=== PATIENT | female | born 1985 | race Caucasian/White ===

== ENCOUNTER 2017-12-12 07:18 | Inpatient (IN) ==
[2017-12-12] MEDS ORDERED: ceFAZolin 2,000 MG in PREMIX 1 EACH IV ONE (07:36)
[2017-12-12] MEDS ORDERED: CITRIC ACID/SODIUM CITRATE 30 ML UDCUP PO ONE (07:36)
[2017-12-12] MEDS ORDERED: FAMOTIDINE 20 MG/2 ML VIAL IV ONE (07:36)
[2017-12-12] MEDS ORDERED: OXYTOCIN 10 UNIT/ML VIAL IM ONE (07:38)
[2017-12-12] MEDS ORDERED: OXYTOCIN/LR 30 UNIT/1,000 ML BAG IV ONE (07:38)
[2017-12-12] MEDS ORDERED: OXYTOCIN/LR 20 UNIT/1,000 ML BAG IV ONE ×2 (07:38→17:23)
[2017-12-12] MEDS: LACTATED RINGERS 1,000 ML IV SCH ×2 (07:40→08:28)
[2017-12-12 08:05] LABS: Basophils % 0.4 % (0.0-0.8); Eosinophils % 0.3 % (0.00-10.9); Hematocrit 28.4 VOL% (35.7-47.0); Hemoglobin 8.6 GM/DL (12.0-16.0); Immature Granulocytes % 0.3 %; Immature Granulocytes Absolute 0.03 #; Lymphocytes # 2.1 10*3/uL (1.4-4.0); Lymphocytes % 22.8 % (21.3-54.2); Mean Corpuscular HGB Conc 30.3 GM/DL (32-36); Mean Corpuscular Hemoglobin 22 PG (27-34); Mean Corpuscular Volume 71.9 FL (87-102); Mean Platelet Volume 10.2 FL (9.6-12.0); Monocytes # 0.3 10*3/uL (0.11-0.8); Monocytes % 3.7 % (1.7-12.7); Neutrophils # 6.8 10*3/uL (1.4-7.4); Neutrophils % 72.5 % (38.7-73.9); Platelet Count 404 T/CUMM (130-400); Red Blood Count 3.95 MC/CUMM (3.8-5.5); Red Cell Distribution Width 15.3 % (9.3-17.3); White Blood Count 9.3 T/CUMM (4-12)
[2017-12-12 08:24] LABS: Alanine Aminotransferase 10 U/L (13-56); Albumin 2.6 G/DL (3.4-5.0); Alkaline Phosphatase 168 U/L (45-117); Aspartate Amino Transferase 15 U/L (0-37); Bilirubin,Total < 0.39 MG/DL (0.2-1.0); Blood Urea Nitrogen 9 MG/DL (7-18); Calcium 7.9 MG/DL (8.5-10.1); Glucose 83 MG/DL (74-106); Potassium 4.1 MMOL/L (3.5-5.1); Sodium 136 MMOL/L (136-145); Total Protein 6.2 G/DL (6.4-8.3)
[2017-12-12] MEDS ORDERED: BUPIVACAINE SPINAL 0.75% 2 ML AMP SPINAL ONE (12:55)
[2017-12-12 13:45] LABS: Cord Arterial Blood HCO3 20.5 MMOL/L; Cord Venous Blood HCO3 22.4 MMOL/L; Cord Venous Blood PCO2 40.4 MMHG; Cord Venous Blood PO2 32.1 MMHG
[2017-12-12] MEDS ORDERED: MORPHINE 10 MG/10 ML VIAL ONE (14:01)
[2017-12-12] MEDS ORDERED: LACTATED RINGERS 1,000 ML IV ONE (14:02)
[2017-12-12] MEDS ORDERED: ONDANSETRON 4 MG/2 ML VIAL ONE (14:02)
[2017-12-12] MEDS ORDERED: fentaNYL 100 MCG/2 ML VIAL ONE (14:02)
[2017-12-12 15:06] LABS: Apearance,Urine CLEAR (Clear); Bacteria,Urine Occasional /HPF (Few); Bilirubin,Urine Negative (Negative); Blood, Urine Negative (Negative); Glucose,Urine (UA) Negative (Negative); Ketones,Urine Negative (Negative); Mucus,Urine Many /LPF (Occasional); Nitrite,Urine Negative (Negative); Protein,Urine Negative; RBC,Urine 3 /HPF (0-4); Squamous Epithelial Cell,Urine Occasional /HPF (0-10); Urine Color Yellow (Yellow); Urine Specific Gravity 1.025 (1.001-1.035); WBC,Urine 8 /HPF (0-6)
[2017-12-12] MEDS ORDERED: LACTATED RINGERS 1,000 ML IV SCH (17:23)
[2017-12-12] MEDS ORDERED: ONDANSETRON 4 MG/2 ML VIAL IV PRN (17:23)
[2017-12-12] MEDS ORDERED: SIMETHICONE CHEW 80 MG TABLET PO PRN (17:23)
[2017-12-12] MEDS ORDERED: RHO(D) IMMUNE GLOBULIN 300 MCG SYRINGE IM ONE (17:23)
[2017-12-12] MEDS ORDERED: ACETAMINOPHEN 325 MG TABLET PO PRN (17:23)
[2017-12-12 18:39] LABS: Basophils # 0.1 10*3/uL (0.0-0.2); Basophils % 0.4 % (0.0-0.8); Eosinophils % 0.2 % (0.00-10.9); Hematocrit 26.2 VOL% (35.7-47.0); Immature Granulocytes % 0.5 %; Immature Granulocytes Absolute 0.07 #; Lymphocytes # 2.3 10*3/uL (1.4-4.0); Lymphocytes % 15.6 % (21.3-54.2); Mean Corpuscular HGB Conc 30.5 GM/DL (32-36); Mean Corpuscular Hemoglobin 22 PG (27-34); Mean Corpuscular Volume 71.8 FL (87-102); Mean Platelet Volume 10.3 FL (9.6-12.0); Monocytes # 0.4 10*3/uL (0.11-0.8); Monocytes % 2.9 % (1.7-12.7); Neutrophils # 11.7 10*3/uL (1.4-7.4); Neutrophils % 80.4 % (38.7-73.9); Platelet Count 352 T/CUMM (130-400); Red Blood Count 3.65 MC/CUMM (3.8-5.5); Red Cell Distribution Width 15.2 % (9.3-17.3); White Blood Count 14.6 T/CUMM (4-12)
[2017-12-12] MEDS: ceFAZolin 1,000 MG in SYRINGE 1 EACH IV SCH (20:47)
[2017-12-12] MEDS ORDERED: diphenhydrAMINE 50 MG/1 ML VIAL IV PRN (21:41)
[2017-12-13] MEDS: DOCUSATE SODIUM 100 MG CAPSULE PO SCH ×3 (02:46→21:16)
[2017-12-13] MEDS: ceFAZolin 1,000 MG in SYRINGE 1 EACH IV SCH (05:22)
[2017-12-13 06:16] LABS: Basophils % 0.2 % (0.0-0.8); Eosinophils # 0.1 10*3/uL (0.0-0.87); Eosinophils % 0.7 % (0.00-10.9); Hematocrit 23.4 VOL% (35.7-47.0); Hemoglobin 7.2 GM/DL (12.0-16.0); Immature Granulocytes % 0.5 %; Immature Granulocytes Absolute 0.05 #; Lymphocytes # 1.6 10*3/uL (1.4-4.0); Lymphocytes % 14.8 % (21.3-54.2); Mean Corpuscular HGB Conc 30.8 GM/DL (32-36); Mean Corpuscular Hemoglobin 22 PG (27-34); Mean Corpuscular Volume 70.9 FL (87-102); Monocytes # 0.4 10*3/uL (0.11-0.8); Monocytes % 4.2 % (1.7-12.7); Neutrophils # 8.5 10*3/uL (1.4-7.4); Neutrophils % 79.6 % (38.7-73.9); Platelet Count 298 T/CUMM (130-400); Red Cell Distribution Width 15.4 % (9.3-17.3); White Blood Count 10.6 T/CUMM (4-12)
[2017-12-13] MEDS: FERROUS SULFATE 325 MG TABLET PO SCH ×2 (08:34→21:16)
[2017-12-13] MEDS: MULTIVITAMIN (PRENATAL) TABLET PO SCH (08:34)
[2017-12-13] MEDS: MAGNESIUM HYDROXIDE SUSP 30 ML UDCUP PO PRN (08:34)
[2017-12-13] MEDS ORDERED: SODIUM CHLORIDE 0.9% 1,000 ML IV PRN (09:18)
[2017-12-13] MEDS: IBUPROFEN 800 MG TABLET PO PRN ×2 (10:36→23:25)
[2017-12-13 16:31] LABS: Hematocrit 28.5 VOL% (35.7-47.0)
[2017-12-13] MEDS: CIPROFLOXACIN 500 MG TABLET PO SCH (16:47)
[2017-12-13] MEDS ORDERED: CIPROFLOXACIN 500 MG TABLET PO SCH (21:00)
[2017-12-14 06:58] LABS: Hematocrit 29.7 VOL% (35.7-47.0); Hemoglobin 9.2 GM/DL (12.0-16.0)
[2017-12-14 07:39] VITALS: BP 132/75
[2017-12-14] MEDS: MAGNESIUM HYDROXIDE SUSP 30 ML UDCUP PO PRN (09:44)
[2017-12-14] MEDS: CIPROFLOXACIN 500 MG TABLET PO SCH (09:44)
[2017-12-14] MEDS: MULTIVITAMIN (PRENATAL) TABLET PO SCH (09:45)
[2017-12-14] MEDS: DOCUSATE SODIUM 100 MG CAPSULE PO SCH (09:45)
[2017-12-14] MEDS: FERROUS SULFATE 325 MG TABLET PO SCH (09:45)
== END 2017-12-14 12:15 | disposition home or self-care (01) | DRG 540 ==
LOC: N.LDOUT 07:18 → N.LD 07:23 → N.OB 17:11
PROVIDERS: ADMIT Obstetrics & Gynecology; ATTEND Obstetrics & Gynecology
PROC: LDCSECT (ICD-10-PCS; 2017-12-12 10:30)

== ENCOUNTER 2019-02-16 11:11 | Inpatient (IN) ==
[2019-02-16] MEDS ORDERED: ceFAZolin 2,000 MG in PREMIX 1 EACH IV ONE (11:29)
[2019-02-16] MEDS ORDERED: FAMOTIDINE 20 MG/2 ML VIAL IV ONE (11:29)
[2019-02-16] MEDS ORDERED: CITRIC ACID/SODIUM CITRATE 30 ML UDCUP PO ONE (11:29)
[2019-02-16] MEDS ORDERED: LACTATED RINGERS 1,000 ML IV SCH (11:30)
[2019-02-16 11:57] LABS: Basophils % 0.3 % (0.0-0.8); Eosinophils % 0.3 % (0.00-10.9); Hematocrit 25.9 VOL% (35.7-47.0); Hemoglobin 7.3 GM/DL (12.0-16.0); Immature Granulocytes % 0.5 %; Immature Granulocytes Absolute 0.05 #; Lymphocytes # 2.3 10*3/uL (1.4-4.0); Lymphocytes % 21.8 % (21.3-54.2); Mean Corpuscular HGB Conc 28.2 GM/DL (32-36); Mean Corpuscular Volume 68.9 FL (87-102); Mean Platelet Volume 9.8 FL (9.6-12.0); Monocytes % 4.5 % (1.7-12.7); Neutrophils % 72.6 % (38.7-73.9); Platelet Count 427 T/CUMM (130-400); Red Blood Count 3.76 MC/CUMM (3.8-5.5); Red Cell Distribution Width 17.5 % (9.3-17.3); White Blood Count 10.6 T/CUMM (4-12)
[2019-02-16] MEDS ORDERED: OXYTOCIN 10 UNIT/ML VIAL ONE (12:16)
[2019-02-16] MEDS ORDERED: OXYTOCIN 10 UNIT/ML VIAL IM ONE (12:17)
[2019-02-16] MEDS ORDERED: OXYTOCIN/LR 30 UNIT/1,000 ML BAG IV ONE (12:17)
[2019-02-16 12:18] LABS: Albumin 2.5 G/DL (3.4-5.0); Bilirubin,Total 0.4 MG/DL (0.2-1.0); Calcium 8.2 MG/DL (8.5-10.1); Osmolality,Calculated 272.7 MOS/KG (273-304); Total Protein 6.4 G/DL (6.4-8.3)
[2019-02-16] MEDS ORDERED: DEXAMETHASONE 4 MG/1 ML VIAL ONE (12:20)
[2019-02-16] MEDS ORDERED: ONDANSETRON 4 MG/2 ML VIAL ONE (12:20)
[2019-02-16] MEDS ORDERED: PHENYLEPHRINE 1 MG/10 ML SYRINGE IV ONE (12:20)
[2019-02-16] MEDS ORDERED: MORPHINE 10 MG/10 ML VIAL ONE (12:20)
[2019-02-16] MEDS ORDERED: EPINEPHrine 1 MG/ML VIAL ONE (12:20)
[2019-02-16] MEDS ORDERED: BUPIVACAINE 0.5% 50 ML VIAL ONE (12:20)
[2019-02-16] MEDS ORDERED: BUPIVACAINE SPINAL 0.75% 2 ML AMP SPINAL ONE (12:21)
[2019-02-16 12:26] LABS: Hypochromasia 1+; Platelet Estimate Adequate
[2019-02-16] MEDS ORDERED: OXYTOCIN/LR 20 UNIT/1,000 ML BAG IV SCH (12:30)
[2019-02-16 12:54] LABS: Apearance,Urine CLEAR (Clear); Bilirubin,Urine Negative (Negative); Blood, Urine Moderate mg/dL (Negative); Glucose,Urine (UA) Negative (Negative); Hyaline Casts,Urine 1 /LPF (0-3); Ketones,Urine Negative (Negative); Mucus,Urine Occasional /LPF (Occasional); Nitrite,Urine Negative (Negative); Protein,Urine Negative; RBC,Urine 10 /HPF (0-4); Squamous Epithelial Cell,Urine Occasional /HPF (0-10); Urine Color Yellow (Yellow); Urine Specific Gravity 1.017 (1.001-1.035); Urine Urobilinogen < 2.0 EU/DL (0.2-1.0); WBC,Urine 1 /HPF (0-6)
[2019-02-16 13:43] LABS: Cord Venous Blood HCO3 21.5 MMOL/L; Cord Venous Blood PCO2 46.7 MMHG
[2019-02-16 13:45] LABS: Cord Arterial Blood HCO3 19.5 MMOL/L
[2019-02-16] MEDS ORDERED: MIDAZOLAM 2 MG/2 ML VIAL ONE (14:22)
[2019-02-16] MEDS ORDERED: IBUPROFEN 800 MG TABLET PO PRN (14:58)
[2019-02-16] MEDS ORDERED: RHO(D) IMMUNE GLOBULIN 300 MCG SYRINGE IM ONE (14:58)
[2019-02-16] MEDS ORDERED: SIMETHICONE CHEW 80 MG TABLET PO PRN (14:58)
[2019-02-16] MEDS ORDERED: ONDANSETRON 4 MG/2 ML VIAL IV PRN (14:58)
[2019-02-16] MEDS ORDERED: ACETAMINOPHEN 325 MG TABLET PO PRN (14:58)
[2019-02-16] MEDS ORDERED: OXYTOCIN/LR 20 UNIT/1,000 ML BAG IV ONE (14:58)
[2019-02-16] MEDS ORDERED: KETOROLAC 30 MG/1 ML VIAL IV PRN (15:00)
[2019-02-16] MEDS ORDERED: ACETAMINOPHEN 500 MG TABLET PO SCH (15:00)
[2019-02-16] MEDS ORDERED: diphenhydrAMINE 50 MG/1 ML VIAL ONE (16:50)
[2019-02-16] MEDS ORDERED: diphenhydrAMINE 50 MG/1 ML VIAL IV PRN (16:51)
[2019-02-16 20:33] LABS: Basophils % 0.2 % (0.0-0.8); Hematocrit 25.9 VOL% (35.7-47.0); Hemoglobin 7.3 GM/DL (12.0-16.0); Immature Granulocytes % 0.7 %; Immature Granulocytes Absolute 0.13 #; Lymphocytes % 5.2 % (21.3-54.2); Mean Corpuscular HGB Conc 28.2 GM/DL (32-36); Mean Corpuscular Volume 69.3 FL (87-102); Mean Platelet Volume 9.9 FL (9.6-12.0); Neutrophils % 91.9 % (38.7-73.9); Platelet Count 394 T/CUMM (130-400); Red Blood Count 3.74 MC/CUMM (3.8-5.5); Red Cell Distribution Width 17.4 % (9.3-17.3)
[2019-02-16] MEDS: ACETAMINOPHEN 500 MG TABLET PO SCH (20:49)
[2019-02-16] MEDS: ceFAZolin 1,000 MG in SYRINGE 1 EACH IV SCH (20:49)
[2019-02-16] MEDS: FERROUS SULFATE 325 MG TABLET PO SCH (20:50)
[2019-02-16] MEDS: KETOROLAC 30 MG/1 ML VIAL IV SCH (20:50)
[2019-02-16] MEDS: DOCUSATE SODIUM 100 MG CAPSULE PO SCH (20:50)
[2019-02-16] MEDS: LACTATED RINGERS 1,000 ML IV SCH (21:18)
[2019-02-16 21:55] LABS: Band Neutrophils 3 % (0-10); Lymphocytes 6 % (20-55); Segmented Neutrophils 90 % (50-85); Total Cells Counted 100
[2019-02-16 21:56] LABS: Microcytosis 2+; Platelet Estimate Increased; Polychromasia Slight
[2019-02-17] MEDS ORDERED: diphenhydrAMINE CAP 25 MG CAPSULE PO PRN (03:06)
[2019-02-17] MEDS ORDERED: diphenhydrAMINE CAP 25 MG CAPSULE ONE (03:10)
[2019-02-17] MEDS: ACETAMINOPHEN 500 MG TABLET PO SCH ×2 (03:12→09:00)
[2019-02-17] MEDS: KETOROLAC 30 MG/1 ML VIAL IV SCH ×2 (03:12→10:50)
[2019-02-17] MEDS: ceFAZolin 1,000 MG in SYRINGE 1 EACH IV SCH (04:17)
[2019-02-17] MEDS: LACTATED RINGERS 1,000 ML IV SCH (04:23)
[2019-02-17 05:20] LABS: Basophils % 0.2 % (0.0-0.8); Hematocrit 22.1 VOL% (35.7-47.0); Immature Granulocytes % 0.4 %; Immature Granulocytes Absolute 0.07 #; Lymphocytes # 2.3 10*3/uL (1.4-4.0); Mean Corpuscular HGB Conc 28.5 GM/DL (32-36); Mean Corpuscular Volume 69.5 FL (87-102); Mean Platelet Volume 10.4 FL (9.6-12.0); Monocytes % 4.5 % (1.7-12.7); Neutrophils % 79.9 % (38.7-73.9); Platelet Count 380 T/CUMM (130-400); Red Blood Count 3.18 MC/CUMM (3.8-5.5); Red Cell Distribution Width 17.4 % (9.3-17.3); White Blood Count 15.6 T/CUMM (4-12)
[2019-02-17 05:22] LABS: Hemoglobin 6.3 GM/DL (12.0-16.0)
[2019-02-17] MEDS ORDERED: SODIUM CHLORIDE 0.9% 1,000 ML IV PRN (05:27)
[2019-02-17 06:30] LABS: Anisocytosis 1+; Microcytosis 3+
[2019-02-17 06:31] LABS: Hypochromasia 1+; Platelet Estimate Normal; Polychromasia Slight; Target Cells Slight
[2019-02-17] MEDS: METOCLOPRAMIDE 10 MG TABLET PO SCH ×3 (07:48→23:43)
[2019-02-17] MEDS: FERROUS SULFATE 325 MG TABLET PO SCH ×3 (08:59→21:36)
[2019-02-17] MEDS: DOCUSATE SODIUM 100 MG CAPSULE PO SCH ×2 (09:00→21:36)
[2019-02-17] MEDS: MULTIVITAMIN (PRENATAL) TABLET PO SCH (09:01)
[2019-02-17] MEDS ORDERED: KETOROLAC 30 MG/1 ML VIAL ONE (10:48)
[2019-02-17 15:51] LABS: Hematocrit 24.7 VOL% (35.7-47.0); Hemoglobin 7.2 GM/DL (12.0-16.0)
[2019-02-17] MEDS: MAGNESIUM HYDROXIDE SUSP 30 ML UDCUP PO PRN (21:36)
[2019-02-18 06:21] LABS: Hematocrit 27.5 VOL% (35.7-47.0); Hemoglobin 7.9 GM/DL (12.0-16.0)
[2019-02-18] MEDS: DOCUSATE SODIUM 100 MG CAPSULE PO SCH (09:06)
[2019-02-18] MEDS: MULTIVITAMIN (PRENATAL) TABLET PO SCH (09:06)
[2019-02-18] MEDS: FERROUS SULFATE 325 MG TABLET PO SCH ×2 (09:06→15:42)
[2019-02-18] MEDS: MAGNESIUM HYDROXIDE SUSP 30 ML UDCUP PO PRN (09:06)
[2019-02-18] MEDS: METOCLOPRAMIDE 10 MG TABLET PO SCH (09:08)
[2019-02-18 11:58] VITALS: BP 124/72
== END 2019-02-18 15:40 | disposition home or self-care (01) | DRG 540 ==
LOC: N.LDOUT 11:11 → N.LD 11:15 → EDSTATUS 13:45 → N.OB 17:18
PROVIDERS: ADMIT Obstetrics & Gynecology; ATTEND Obstetrics & Gynecology
PROC: LDCSECT (ICD-10-PCS; 2019-02-16 14:00)